=== PATIENT | male | born 2000 | race African-American/Black ===

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

== ENCOUNTER 2021-06-03 02:59 | Emergency (ER) | payer SELFPAY ==
--- NOTE | 2021-06-03 03:22 | EDPHYS ---
Physician Documentation [facility] Name: Nain Lundberg Age: 20 yrs Sex: Male : 2000 Arrival Date: 06/03/2021 Time: 03:02 Bed 18 Private MD: ED Physician Ben Murphy HPI: 06/03 03:10 This 20 yrs old Black Male presents to ER via Ambulatory with complaints of Foreign ms3 Body In Ear. 03:10 The patient presents with pain, that is acute. The complaints affect the left ear. ms3 Onset: The symptoms/episode began/occurred acutely, 1 week(s) ago. Modifying factors: The symptoms are alleviated by nothing, the symptoms are aggravated by nothing. Associated signs and symptoms: The patient has no apparent associated signs or symptoms. 20-year-old male with no past medical history presents for left ear pain that is been ongoing for 1 week. Patient states he feels a foreign body in his ear. Patient's significant other states she removed toilet paper from patient's here prior to arrival. Patient denies alleviating or inciting factors. Patient denies pain at this time.. Historical: - Allergies: 03:09 No Known Allergies; pattie - Home Meds: 03:09 None [Active]; pattie - PMHx: 03:09 None; pattie - PSHx: 03:09 None; pattie - Immunization history:: Client reports having NOT received the Covid vaccine. - Social history:: Smoking status: Reported history of juuling and/or vaping. Patient uses alcohol, occasionally. ROS: 03:10 Constitutional: Negative for fever, and chills. Eyes: Negative for injury, pain, ms3 redness, and discharge, Cardiovascular: Negative for chest pain, and palpitations. Respiratory: Negative for shortness of breath, cough, wheezing, and pleuritic chest pain, Abdomen/GI: Negative for abdominal pain, nausea, vomiting, diarrhea, and constipation, MS/Extremity: Negative for injury and deformity, Skin: Negative for injury, rash, and discoloration. 03:10 ENT: Positive for ear pain, foreign body sensation. 03:10 All other systems are negative. Exam: 03:10 Constitutional: This is a well developed, well nourished patient who is awake, alert, ms3 and in no acute distress. Head/Face: Normocephalic, atraumatic. Neck: Trachea midline, no cervical lymphadenopathy. Supple, full range of motion without nuchal rigidity, or vertebral point tenderness. No Meningismus. Chest/axilla: Normal chest wall appearance and motion. Nontender with no deformity. Cardiovascular: Regular rate and rhythm with a normal S1 and S2. No gallops, murmurs, or rubs. Normal PMI, no JVD. No pulse deficits. Respiratory: Lungs have equal breath sounds bilaterally, clear to auscultation and percussion. No rales, rhonchi or wheezes noted. No increased work of breathing, no retractions or nasal flaring. Back: No spinal tenderness. No costovertebral tenderness. Full range of motion. Skin: Warm, dry with normal turgor. Normal color with no rashes, no lesions, and no evidence of cellulitis. Psych: Awake, alert, with orientation to person, place and time. Behavior, mood, and affect are within normal limits. 03:10 ENT: TM's: rupture, on the left, Examination of the other ear shows no obvious abnormality. Vital Signs: 03:07 BP 131 / 83; Pulse 82; Resp 18; Temp 98.2; Pulse Ox 100% on R/A; Weight 113.4 kg; pattie Height 6 ft. 3 in. (190.50 cm); Pain 7/10; 03:11 BP 131 / 83; Pulse 82; Resp 18; Temp 98.2; Pulse Ox 100% on R/A; pattie 03:07 Body Mass Index 31.25 (113.40 kg, 190.50 cm) pattie MDM: 03:10 Differential diagnosis: otitis media, ruptured TM, foreign body. ms3 03:21 Patient medically screened. ms3 03:22 Data reviewed: vital signs, nurses notes. Counseling: I had a detailed discussion with ms3 the patient and/or guardian regarding: the historical points, exam findings, and any diagnostic results supporting the discharge/admit diagnosis, the need for outpatient follow up, to return to the emergency department if symptoms worsen or persist or if there are any questions or concerns that arise at home. Administered Medications: No medications were administered Disposition Summary: 06/03/21 03:22 Discharge Ordered Location: Home ms3 Condition: Stable ms3 Diagnosis - Unspecified perforation of tympanic membrane, left ear ms3 - Acute serous otitis media, left ear ms3 Followup: ms3 - With: Zaida Andersen MD - When: 2 - 3 days - Reason: Recheck today's complaints Discharge Instructions: - Discharge Summary Sheet ms3 - Otitis Media, Adult ms3 - Eardrum Rupture, Pediatric ms3 Forms: - Medication Reconciliation Form ms3 - Thank You Letter ms3 - Antibiotic Education ms3 - Prescription Opioid Use ms3 Prescriptions: - Amoxicillin 875 mg Oral Tablet - take 1 tablet by ORAL route every 12 hours for 10 days; 20 tablet; Refills: 0, ms3 Product Selection Permitted Signatures: Ben Murphy DO DO ms3 Dali Aceves, RN RN pattie
--- NOTE | 2021-06-03 03:22 | ER ---
Nurse's Notes [facility] Name: Nain Lundberg Age: 20 yrs Sex: Male : 2000 Arrival Date: 06/03/2021 Time: 03:02 Bed 18 Private MD: Diagnosis: Unspecified perforation of tympanic membrane, left ear;Acute serous otitis media, left ear Presentation: 06/03 03:07 Chief complaint: Patient states: left ear pain. Coronavirus screen: Vaccine status: pattie Patient reports being unvaccinated. Ebola Screen: Patient negative for fever greater than or equal to 101.5 degrees Fahrenheit, and additional compatible Ebola Virus Disease symptoms Patient denies exposure to infectious person. Patient denies travel to an Ebola-affected area in the 21 days before illness onset. Initial Sepsis Screen: Does the patient meet any 2 criteria? No. Patient's initial sepsis screen is negative. Does the patient have a suspected source of infection? No. Patient's initial sepsis screen is negative. Risk Assessment: Do you want to hurt yourself or someone else? Patient reports no desire to harm self or others. Onset of symptoms was May 28, 2021. 03:07 Method Of Arrival: Ambulatory pattie 03:07 Acuity: ANUP 4 pattie Triage Assessment: 03:10 General: Appears in no apparent distress. comfortable, Behavior is calm, cooperative. pattie Pain: Complains of pain in left ear. Historical: - Allergies: 03:09 No Known Allergies; pattie - Home Meds: 03:09 None [Active]; pattie - PMHx: 03:09 None; pattie - PSHx: 03:09 None; pattie - Immunization history:: Client reports having NOT received the Covid vaccine. - Social history:: Smoking status: Reported history of juuling and/or vaping. Patient uses alcohol, occasionally. Screenin:11 Abuse screen: Denies threats or abuse. Denies injuries from another. Nutritional pattie screening: No deficits noted. Tuberculosis screening: No symptoms or risk factors identified. Fall Risk None identified. Assessment: 03:18 General: Appears in no apparent distress. comfortable, well groomed, well developed, tk1 well nourished, Behavior is calm, cooperative, appropriate for age. Pain: Complains of pain in left ear Pain does not radiate. Pain currently is 6 out of 10 on a pain scale. Quality of pain is described as aching, Pain began 4 hours ago. Neuro: Level of Consciousness is awake, alert, obeys commands, Oriented to person, place, time, situation, Appropriate for age. Cardiovascular: No deficits noted. Cardiovascular: Capillary refill < 3 seconds is brisk in bilateral fingers. Respiratory: Airway is patent Respiratory effort is even, unlabored, Respiratory pattern is regular, symmetrical. GI: No deficits noted. No signs and/or symptoms were reported involving the gastrointestinal system. : No deficits noted. No signs and/or symptoms were reported regarding the genitourinary system. EENT: Reports pain in left ear. Derm: No deficits noted. No signs and/or symptoms reported regarding the dermatologic system. Musculoskeletal: No deficits noted. No signs and/or symptoms reported regarding the musculoskeletal system. 03:28 Reassessment: D/C per MD order. Discharge/Prescription instructions given to patient tk1 and SO. Verbalized understanding. Vital Signs: 03:07 BP 131 / 83; Pulse 82; Resp 18; Temp 98.2; Pulse Ox 100% on R/A; Weight 113.4 kg; pattie Height 6 ft. 3 in. (190.50 cm); Pain 7/10; 03:11 BP 131 / 83; Pulse 82; Resp 18; Temp 98.2; Pulse Ox 100% on R/A; pattie 03:07 Body Mass Index 31.25 (113.40 kg, 190.50 cm) pattie ED Course: 03:02 Patient arrived in ED. kc5 03:09 Triage completed. pattie 03:10 Ben Murphy DO is Attending Physician. ms3 03:11 Arm band placed on left wrist. pattie 03:12 Patient has correct armband on for positive identification. pattie 03:12 No provider procedures requiring assistance completed. pattie 03:18 Candelaria Chaudhry is Primary Nurse. tk1 03:18 Patient did not have IV access during this emergency room visit. tk1 03:21 Zaida Andersen MD is Referral Physician. ms3 Administered Medications: No medications were administered Outcome: 03:12 Condition: stable pattie 03:22 Discharge ordered by MD. ms3 03:28 Discharged to home ambulatory, with family. tk1 03:28 Discharge instructions given to patient, family, Instructed on discharge instructions, follow up and referral plans. medication usage, Demonstrated understanding of instructions, follow-up care, medications. 03:33 Patient left the ED. tk1 Signatures: Ben Murphy DO DO ms3 Wendie Clark kc5 Dali Aceves, SHARA RN Candelaria Earl tk1
[2021-06-03 04:05] VITALS: BP 131/83; TEMP 98.2; O2SAT 100
== END 2021-06-03 03:33 | disposition home or self-care (01) ==
LOC: ER 02:59
DX: H72.92 Unspecified perforation of tympanic membrane, left ear (principal); H65.02 Acute serous otitis media, left ear
CPT/HCPCS: 99281

== ENCOUNTER 2022-12-31 17:19 | Emergency (ER) | payer SELFPAY ==
[2022-12-31 17:56] LABS: Absolute Lymphocytes (CBC) 3.3 K/uL (0.7-4.9); Hematocrit 44.2 % (39.6-49.0); Lymphocytes % 32.5 % (15.3-44.8); MCV 85.8 fL (80-100); MPV 8.9 fL (7.6-11.3); Platelets 162 thou/uL (152-406); RBC Red Blood Cell Count 5.16 M/uL (4.33-5.43)
[2022-12-31] MEDS ORDERED: MORPHINE 4 MG/ML SYR ONE (18:05)
[2022-12-31] MEDS ORDERED: ONDANSETRON 4 MG/2 ML VIAL ONE (18:05)
[2022-12-31 18:07] LABS: Albumin 4.3 g/dL (3.4-5.0); Bilirubin Direct 0.2 mg/dL (0-0.2); Bilirubin Indirect, Calculated 0.5 mg/dL (0.2-0.8); Bilirubin Total 0.7 mg/dL (0.2-1.0); Potassium 3.7 mEq/L (3.5-5.1); Protein, Total 7.7 g/dL (6.4-8.2); Troponin High Sensitivity 5.1 pg/mL (<58.9)
--- NOTE | 2022-12-31 18:33 | RAD REPORT ---
EXAM DESCRIPTION: Skinny Single View12/31/2022 6:28 pm CLINICAL HISTORY: Chest pain COMPARISON: none FINDINGS: The lungs appear clear of acute infiltrate. The heart is normal size IMPRESSION: No acute abnormalities displayed
[2022-12-31] MEDS ORDERED: MAGNES/ALUMIN/SIMET 30ML UCUP ONE (19:21)
--- NOTE | 2022-12-31 19:25 | EDPHYS ---
Physician Documentation [facility] Name: Nain Lundberg Age: 22 yrs Sex: Male : 2000 Arrival Date: 12/31/2022 Time: 17:19 Bed 15 Private MD: ED Physician Kong Ruelas HPI: 12/31 21:46 This 22 yrs old Black Male presents to ER via Ambulatory with complaints of Chest Pain. kb 21:46 The patient or guardian reports chest pain that is located primarily in the substernal kb area. The pain does not radiate. Associated signs and symptoms: The patient has no apparent associated signs or symptoms. The chest pain is described as sharp. Duration: The patient or guardian reports a single episode. Modifying factors: The symptoms are alleviated by nothing. the symptoms are aggravated by deep breath. Severity of pain: At its worst the pain was moderate in the emergency department the pain is unchanged. The patient has not experienced similar symptoms in the past. The patient has not recently seen a physician. Patient is a 22-year-old male with no medical history who presents for substernal chest pain that started at 1330 today, after eating lunch. States pain has been constant since onset. Reports pain is worse with deep inspiration. Denies shortness of breath, nausea, vomiting. Historical: - Allergies: 17:25 No Known Allergies; cm10 - Home Meds: 17:25 None [Active]; cm10 - PMHx: 17:25 None; cm10 - PSHx: 17:25 None; cm10 - Immunization history:: Adult Immunizations unknown. - Social history:: Smoking status: Patient denies any tobacco usage or history of. ROS: 21:45 Constitutional: Negative for fever, chills, and weight loss, kb 21:45 Cardiovascular: Positive for chest pain, Negative for edema, orthopnea, palpitations, paroxysmal nocturnal dyspnea, 21:45 All other systems are negative, Exam: 21:45 Constitutional: This is a well developed, well nourished patient who is awake, alert, kb and in no acute distress. Head/Face: Normocephalic, atraumatic. ENT: Moist Mucous membranes Cardiovascular: Regular rate Respiratory: Respirations even and unlabored. No increased work of breathing. Talking in full sentences Abdomen/GI: Soft, non-tender. No distention Skin: Warm, dry with normal turgor. Normal color. MS/ Extremity: Pulses equal, no cyanosis. Neurovascular intact. Full, normal range of motion. Neuro: Awake and alert, GCS 15, oriented to person, place, time, and situation. Moves all extremities. Normal gait. Vital Signs: 17:23 BP 120 / 75; Pulse 74; Resp 18; Temp 97.2; Pulse Ox 100% ; Weight 111.58 kg (R); Height cm10 6 ft. 3 in. (R); Pain 8/10; 18:04 BP 119 / 87; Pulse 62; Resp 18; Pulse Ox 98% on R/A; mb9 19:43 BP 109 / 71; Pulse 65; Resp 16; Pulse Ox 100% on R/A; jb4 17:23 Body Mass Index 30.75 (111.58 kg, 190.5 cm) cm10 17:23 Pain Scale: Adult cm10 MDM: 17:24 Patient medically screened. [facility] 21:47 Differential diagnosis: abnormal EKG, acute myocardial infarction, anxiety, coronary kb artery disease chest wall pain, gastritis, gastroesophageal reflux disease (GERD). PRAKASH Risk Score: TOTAL SCORE = 0. Data reviewed: vital signs, nurses notes. Counseling: I had a detailed discussion with the patient and/or guardian regarding the historical points, exam findings, and any diagnostic results supporting the discharge/admit diagnosis, lab results, radiology results, the need for outpatient follow up, a family practitioner, to return to the emergency department if symptoms worsen or persist or if there are any questions or concerns that arise at home. Response to treatment: the patient's symptoms have markedly improved after treatment. 12/31 16: Order name: Basic Metabolic Panel; Complete Time: 18:09 kb 12/31 17: Order name: CBC with Diff; Complete Time: 18:05 kb 12/31 16: Order name: LFT's; Complete Time: 18:09 kb 12/31 Order name: Troponin HS; Complete Time: 18:09 kb 12/31 1728 Order name: XRAY Chest (1 view); Complete Time: 18:35 kb 12/31 17: Order name: EKG; Complete Time: 17:28 kb 12/31 17: Order name: Cardiac monitoring; Complete Time: 17:41 kb 12/31 17:28 Order name: EKG - Nurse/Tech; Complete Time: 17:48 kb 12/31 17:28 Order name: IV Saline Lock; Complete Time: 17:42 kb 12/31 17:28 Order name: Labs collected and sent; Complete Time: 17:42 kb 12/31 17:28 Order name: O2 Per Protocol; Complete Time: 17:42 kb 12/31 17:28 Order name: O2 Sat Monitoring; Complete Time: 17:42 kb Administered Medications: 17:57 Drug: morphine IVP or IV 4 mg IVP once over 4 mins Route: IVP; Infused Over: 4 mins; ap3 Site: right antecubital; 17:57 Drug: Ondansetron IVP 4 mg IVP once; over 2 minutes Route: IVP; Site: right antecubital;ap3 19:20 Not Given (Other Intervention Used; Viscous lido not availablee): GI Cocktail without jb4 - (maaloxsuspension 30 ml, lidocaine mucous membrane liquid 2 % 15 ml) PO once 19:20 Drug: Alum-Mag Hydroxide-Simeth PO Suspension (200 mg-200 mg-20 mg/5 mL) 30 ml PO once jb4 Route: PO; 19:42 Drug: Famotidine IVP 20 mg IVP once; dilute with 10 mL 0.9% NaCl; give over 2 minutes jb4 Route: IVP; Site: right antecubital; Disposition Summary: 12/31/22 19:25 Discharge Ordered Notes: Location: Home kb Condition: Stable kb Diagnosis - Chest pain on breathing kb Followup: kb - With: Emergency Department - When: As needed - Reason: Worsening of condition Followup: kb - With: Private Physician - When: 2 - 3 days - Reason: Recheck today's complaints, Continuance of care, Re-evaluation by your physician Discharge Instructions: - Discharge Summary Sheet kb - Nonspecific Chest Pain, Adult kb Forms: - Medication Reconciliation Form kb - Thank You Letter kb - Antibiotic Education kb - Prescription Opioid Use kb - Patient Portal Instructions kb - Leadership Thank You Letter kb - Work release form jb4 - Family Work Release jb4 Signatures: Dispatcher [employer] Irene Alexandra FNP-C FNP-Sukumar Mendoza RN RN jb4 Calista Cummings RN RN ap3 Elvira Mack FNP FNP jh7 Stephanie Mora, RN RN cm10
--- NOTE | 2022-12-31 19:25 | ER ---
Nurse's Notes [facility] Name: Nain Lundberg Age: 22 yrs Sex: Male : 2000 Arrival Date: 12/31/2022 Time: 17:19 Bed 15 Private MD: Diagnosis: Chest pain on breathing Presentation: 12/31 17:23 Chief complaint: Patient states: chest pain to center of chest onset today at 1330. Pt cm10 states that the pain is worse with inspiration. Pt states that the pain started after eating lunch. Coronavirus screen: Vaccine status: Patient reports being unvaccinated. Client denies travel out of the [place] in the last 14 days. Ebola Screen: Patient denies travel to an Ebola-affected area in the 21 days before illness onset. No symptoms or risks identified at this time. Initial Sepsis Screen: Does the patient meet any 2 criteria? No. Patient's initial sepsis screen is negative. Does the patient have a suspected source of infection? No. Patient's initial sepsis screen is negative. Risk Assessment: Do you want to hurt yourself or someone else? Patient reports no desire to harm self or others. Onset of symptoms was December 31, 2022. 17:23 Method Of Arrival: Ambulatory cm10 17:23 Acuity: ANUP 3 cm10 Historical: - Allergies: 17:25 No Known Allergies; cm10 - Home Meds: 17:25 None [Active]; cm10 - PMHx: 17:25 None; cm10 - PSHx: 17:25 None; cm10 - Immunization history:: Adult Immunizations unknown. - Social history:: Smoking status: Patient denies any tobacco usage or history of. Screenin:41 [facility] ED Fall Risk Assessment (Adult) History of falling in the last 3 months, ap3 including since admission No falls in past 3 months (0 pts). Abuse screen: Denies threats or abuse. Nutritional screening: No deficits noted. Tuberculosis screening: No symptoms or risk factors identified. Assessment: 17:41 Pain: Pain does not radiate. Pain began gradually. Cardiovascular: Patient's skin is ap3 warm and dry. 17:48 General: Appears in no apparent distress. Behavior is anxious. Neuro: Level of ap3 Consciousness is awake, alert, obeys commands, Oriented to person, place, time, situation. Cardiovascular: Reports chest pain, Denies nausea, palpitations, shortness of breath. Respiratory: Airway is patent Respiratory effort is even, unlabored, Respiratory pattern is regular, symmetrical. 18:03 General: Appears in no apparent distress. Behavior is cooperative, anxious. Pain: mb9 Complains of pain in chest Pain does not radiate. Quality of pain is described as throbbing, Pain began gradually, Is intermittent. Neuro: Campbell Agitation-Sedation Scale (RASS): 0 - Alert and Calm Level of Consciousness is awake, alert, obeys commands, Oriented to person, place, time, situation, Appropriate for age. Cardiovascular: Reports chest pain, Heart tones S1 S2 present Patient's skin is warm and dry. Respiratory: Airway is patent Respiratory effort is even, unlabored, Respiratory pattern is regular, symmetrical, Breath sounds are clear bilaterally. GI: Abdomen is round non-distended, Bowel sounds present X 4 quads. Abd is soft and non tender X 4 quads. : No signs and/or symptoms were reported regarding the genitourinary system. EENT: No signs and/or symptoms were reported regarding the EENT system. Derm: Skin is pink, warm \T\ dry. Musculoskeletal: Range of motion: intact in all extremities. 19:00 Reassessment: Patient appears in no apparent distress at this time. Patient and/or jb4 family updated on plan of care and expected duration. Pain level reassessed. Patient is alert, oriented x 3, equal unlabored respirations, skin warm/dry/pink. 19:43 Reassessment: Patient appears in no apparent distress at this time. Patient and/or jb4 family updated on plan of care and expected duration. Pain level reassessed. Patient is alert, oriented x 3, equal unlabored respirations, skin warm/dry/pink. Vital Signs: 17:23 BP 120 / 75; Pulse 74; Resp 18; Temp 97.2; Pulse Ox 100% ; Weight 111.58 kg (R); Height cm10 6 ft. 3 in. (R); Pain 8/10; 18:04 BP 119 / 87; Pulse 62; Resp 18; Pulse Ox 98% on R/A; mb9 19:43 BP 109 / 71; Pulse 65; Resp 16; Pulse Ox 100% on R/A; jb4 17:23 Body Mass Index 30.75 (111.58 kg, 190.5 cm) cm10 17:23 Pain Scale: Adult cm10 ED Course: 17:23 Patient arrived in ED. mg5 17:24 Elvira Mack FNP is PHCP. jh7 17:24 Kong Ruelas MD is Attending Physician. jh7 17:25 Triage completed. cm10 17:25 PHCP role handed off by Elvira Mack FNP kb 17:25 Irene Kimble FNP-C is PHCP. kb 17:25 Arm band placed on Patient placed in an exam room, on a stretcher. cm10 17:40 Initial lab(s) drawn, by me, sent to lab. Inserted saline lock: 20 gauge in right ap3 antecubital area, using aseptic technique. Blood collected. 17:40 Patient maintains SpO2 saturation greater than 95% on room air. ap3 17:41 monitoring specialist on. Pulse ox on. NIBP on. ap3 17:41 Placed in gown. Bed in low position. Call light in reach. Side rails up X2. ap3 17:48 EKG done, by ED staff, reviewed by Irene ESPINOZA. ap3 17:54 Calista Cummings, SHARA is Primary Nurse. ap3 17:54 No provider procedures requiring assistance completed. ap3 18:02 Ania Velasco, SHARA is Primary Nurse. mb9 18:30 XRAY Chest (1 view) In Process Unspecified. EDMS 19:43 IV discontinued, intact, bleeding controlled, No redness/swelling at site. Pressure jb4 dressing applied. Administered Medications: 17:57 Drug: morphine IVP or IV 4 mg IVP once over 4 mins Route: IVP; Infused Over: 4 mins; ap3 Site: right antecubital; 17:57 Drug: Ondansetron IVP 4 mg IVP once; over 2 minutes Route: IVP; Site: right antecubital;ap3 19:20 Not Given (Other Intervention Used; Viscous lido not availablee): GI Cocktail without jb4 - (maaloxsuspension 30 ml, lidocaine mucous membrane liquid 2 % 15 ml) PO once 19:20 Drug: Alum-Mag Hydroxide-Simeth PO Suspension (200 mg-200 mg-20 mg/5 mL) 30 ml PO once jb4 Route: PO; 19:42 Drug: Famotidine IVP 20 mg IVP once; dilute with 10 mL 0.9% NaCl; give over 2 minutes jb4 Route: IVP; Site: right antecubital; Medication: 17:41 VIS not applicable for this client. ap3 Outcome: 19:25 Discharge ordered by MD. cleaning 19:43 Discharged to home ambulatory, with family, jb4 19:43 Condition: stable 19:43 Discharge instructions given to patient, Instructed on discharge instructions, follow up and referral plans. Demonstrated understanding of instructions, follow-up care, 19:44 Patient left the ED. jb4 Signatures: Dispatcher [employer] EDMS Irene Kimble, KEVIN-C [employer] SALES MANAGER-Sukumar Mendoza, RN RN jb4 Calista Cummings RN RN ap3 lEvira Mack, RETAIL ADVERTISING SALES MANAGER RETAIL ADVERTISING SALES MANAGER jh7 Ania Velasco RN RN mb9 Stephanie Mora, RN RN cm10 Sarahi Graves [facility] [place]
[2022-12-31] MEDS ORDERED: FAMOTIDINE 20 MG/2 ML VIAL IV ONE (19:44)
--- NOTE | 2023-01-01 11:56 | EKG ---
Test Date: 2022-12-31 Test Time: 17:45:34 [employer]her Feeder: ALP MEASUREMENT RESULTS: Intervals: Rate: 57 SC: 166 QRSD: 76 QT: 408 QTc: 397 [place]: P: 63 SC: 166 QRS: 69 T: 52 INTERPRETIVE STATEMENTS: Sinus bradycardia Otherwise normal ECG No previous ECG available for comparison Electronically Signed On 01-01-23 11:53:56 CDT by Azam Bradley
== END 2022-12-31 19:44 | disposition home or self-care (01) ==
LOC: ER 17:19
DX: R07.1 Chest pain on breathing (principal)
CPT/HCPCS: 36415; 71045; 80048; 80076; 84484; 85025; 93005; 96374; 96375; 99285; J2405